=== PATIENT | male | born 1950 | race Caucasian/White ===

== ENCOUNTER → 2017-05-01 | Outpatient (CLI) | payer MEDICARE, BC ==
[~2017-05-01] MED LIST: 3N1 COMMODE MC; ALLO300T2 PO; ASPI-781 PO; DIAZ-90 PO; OXYC-481 PO; ROSU5TAB5 PO; TRAM50TA2 PO; WALK1EAC23 MC
--- NOTE | 2017-05-01 17:21 | RADRPT ---
PROCEDURE: XR pelvis/right hip. CLINICAL INDICATION: Hip pain TECHNIQUE: AP pelvis/AP and lateral right hip views performed. COMPARISON: No prior studies are available for comparison. FINDINGS: There is a right total hip replacement. There is no evidence of loosening of the prosthesis. No hard madsen failure is identified. 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 There is mild to moderate left hip osteoarthrosis. This is associated with joint space narrowing, velasquez bchondral sclerosis, subchondral cyst formation and osteophytosis. There is normal osseous minerali zation. No fractures or osseous lesions are identified. The soft tissues are unremarkable. IMPRESSION: Right total hip replacement. Mild to moderate left hip osteoarthrosis. RPTAT: [facility] .Grayson Gil MD, Date Time Electronically viewed and signed by .Grayson Gil MD, on 05/01/2017 17:20 .B/
== END | disposition home or self-care (01) ==
LOC: HKI 13:46
PROVIDERS: ATTEND Orthopaedic Surgery
DX: M25.552 Pain in left hip (principal); M16.12 Unilateral primary osteoarthritis, left hip; Z96.641 Presence of right artificial hip joint
CPT/HCPCS: 73502; G0463